=== PATIENT | female | born 1980 | race Caucasian/White ===

== ENCOUNTER 2016-07-12 09:15 | Emergency (ER) | payer BC, SELFPAY ==
[~2016-07-12] VITALS: Ht 165.1 cm; Wt 125.2 kg
[~2016-07-12 09:15] MED LIST: FLEXERIL OR; NEUR100C OR; ORTHO TRI CYCLEN OR; VICO5TAB OR
[2016-07-12] MEDS ORDERED: IBUP600T26 PO (09:25)
[2016-07-12] MEDS ORDERED: AMOX500C PO (09:25)
[2016-07-12] MEDS ORDERED: SODIUM CHLORIDE 0.9% 1000 ML IV ONE (09:45)
[2016-07-12] MEDS ORDERED: ONDANSETRON 4MG/2ML VIAL (J2405) IV ONE (09:45)
[2016-07-12] MEDS ORDERED: MORPHINE 4 MG/ML 1ML SYRINGE IV ONE (09:45)
[2016-07-12] MEDS ORDERED: CLINDAMYCIN 900 MG in APPROPRIATE DILUENT 1 EA IV ONE (09:45)
[2016-07-12] MEDS ORDERED: KETOROLAC 30 MG/ML VIAL (J1885) IV ONE (09:45)
[2016-07-12] MEDS ORDERED: VICO5TAB16 PO (09:47)
[2016-07-12 09:59] VITALS: BP 111/55
[2016-07-12 10:22] LABS: MEAN CORPUSCULAR HEMOGLOBIN 27.8 pg (27.0-33.0); MEAN CORPUSCULAR HGB CONC 31.5 g/dl (32.0-36.5); MEAN CORPUSCULAR VOLUME 88.1 fl (80.0-96.0); RED CELL DISTRIBUTION WIDTH 13.9 % (11.5-14.5); WHITE BLOOD COUNT 9.3 K/mm3 (4.0-10.0)
[2016-07-12 10:25] LABS: ANION GAP 6 MEQ/L (8-16); BLOOD UREA NITROGEN 9 MG/DL (7-18); CALCIUM LEVEL 9.2 MG/DL (8.5-10.1); CARBON DIOXIDE LEVEL 30 MEQ/L (21-32); CHLORIDE LEVEL 106 MEQ/L (98-107); CREATININE FOR GFR 0.93 MG/DL (0.55-1.02); GLOMERULAR FILTRATION RATE > 60.0 (>60); GLUCOSE, FASTING 93 MG/DL (70-105); POTASSIUM SERUM 4.1 MEQ/L (3.5-5.1); SODIUM LEVEL 142 MEQ/L (136-145)
[2016-07-12] MEDS ORDERED: CLIN1CAP5 PO (10:40)
[2016-07-12 11:04] LABS: EOSINOPHILS 1 % (0-5)
[2016-07-12] MEDS ORDERED: IBUPOTC PO (21:53)
[2016-07-12] MEDS ORDERED: HYDR-3713 PO (21:53)
[2016-07-12] MEDS ORDERED: EXCETAB80 PO (21:53)
== END 2016-07-12 11:08 | disposition home or self-care (01) ==
LOC: M ED 10:18
DX: K04.7 Periapical abscess without sinus (principal); K12.2 Cellulitis and abscess of mouth; Z79.2 Long term (current) use of antibiotics
CPT/HCPCS: 36415; 80048; 85007; 85027; 96365; 96375; 99283; J1885; J2405

== ENCOUNTER 2016-07-12 19:22 | Inpatient (IN) | payer BC ==
[~2016-07-12] VITALS: Ht 162.6 cm; Wt 126.7 kg
[~2016-07-12 19:22] MED LIST changes: +AMOX500C PO; +CLIN1CAP5 PO; +IBUP600T26 PO; +VICO5TAB16 PO
[2016-07-12] MEDS ORDERED: KETOROLAC 30 MG/ML VIAL (J1885) IV ONE (21:30)
[2016-07-12] MEDS ORDERED: ONDANSETRON 4MG/2ML VIAL (J2405) IV ONE (21:30)
[2016-07-12] MEDS ORDERED: NS 1,000 ML IV SCH (21:30)
[2016-07-12] MEDS ORDERED: CLINDAMYCIN 600 MG in APPROPRIATE DILUENT 1 EA IV ONE (21:30)
[2016-07-12 21:37] LABS: BASO % 0.4 % (0.0-1.0); EOS # 0.1 K/mm3 (0.0-0.50); EOS % 1.2 % (0.0-3.0); LARGE UNSTAINED CELL # 0.1 K/mm3 (0.0-0.4); LARGE UNSTAINED CELL % 0.8 % (0.0-4.0); LYMPH # 2.2 K/mm3 (1.5-4.5); LYMPH % 21.5 % (24.0-44.0); MEAN CORPUSCULAR HEMOGLOBIN 27.5 pg (27.0-33.0); MEAN CORPUSCULAR HGB CONC 30.9 g/dl (32.0-36.5); MEAN CORPUSCULAR VOLUME 88.9 fl (80.0-96.0); MONO # 0.5 K/mm3 (0.0-0.8); MONO % 5.3 % (0.0-5.0); NEUTROPHILS % 70.8 % (36.0-66.0); PLATELET COUNT, AUTOMATED 314 k/mm3 (150-450); WHITE BLOOD COUNT 9.9 K/mm3 (4.0-10.0)
[2016-07-12] MEDS ORDERED: EXCETAB80 PO (21:53)
[2016-07-12] MEDS ORDERED: HYDR-3713 PO (21:53)
[2016-07-12] MEDS ORDERED: IBUPOTC PO (21:53)
[2016-07-12 22:07] LABS: CONTROL LINE HCG INT CTR LINE PRESENT
[2016-07-12] MEDS ORDERED: ISOVUE-370 76% 100ML VIAL (Q9967) As Ordered ONE (22:12)
[2016-07-12] MEDS ORDERED: ACETAMINOPHEN TAB 650MG DOSE (2X325MG) PO PRN (22:15)
--- NOTE | 2016-07-12 22:40 | REPUSA ---
CT of the facial bones with contrast Clinical history: Pain, swelling. Technique: Multiple axial CT images were obtained through the facial bones and paranasal sinuses util izing 3 mm axial slices following administration of nonionic intravenous contrast. Coronal and sagitt al reconstructions were also obtained. Findings: The visualized paranasal sinuses are clear. The osteomeatal complexes are patent bilaterall y. The nasal septum is slightly deviated leftward. The visualized mastoid air cells are clear. The o sseous structures do not demonstrate any acute abnormalities. The superficial soft tissues demonstrat e inflammation and swelling throughout the left maxillary and left mandibular regions. Impression: 1. Left mandibular and maxillarysoft tissue inflammatory changes, most suggestive of cellulitis. Clin ical correlation is recommended.
--- NOTE | 2016-07-12 22:56 | HPE ---
DATE OF ADMISSION: 07/12/2016 REASON FOR ADMISSION: Facial cellulitis. PRIMARY CARE PROVIDER: None. HISTORY OF PRESENT ILLNESS: The patient is a 36-year-old female with no past medical history. Started having a tooth problem recently. She had a broken tooth. She states it has been going on for a while, but cannot tell me exactly when it was broken. Saw a dentist yesterday, [facility], 07/11/2016. She was noted to have a dental abscess and she was prescribed amoxicillin, which she started yesterday. This morning she stated the swelling has gotten worse overnight. She went back to the dentist's office. At that time they called an oral surgeon who reviewed the patient's x-ray from the day prior and recommended that patient go to the emergency room for IV antibiotics. Patient presented to the emergency room where she received one dose of clindamycin IV and was discharged to come back later for recheck. Patient ended up coming back early because the swelling had worsened and now spreading down to her neck. Patient received another dose of clindamycin at this time and hospitalist was called for the admission. Patient states that she has been afebrile, but has been complaining of chills. She states she has no swallowing or breathing problems at this time but that the swelling has gotten worse, spreading down to her neck with pain also going down her neck. She has no other symptoms at this time. REVIEW OF SYSTEMS: 12-point review of system was obtained, all of which was negative except for those mentioned above. PAST MEDICAL HISTORY: None. PAST SURGICAL HISTORY: None. ALLERGIES TO MEDICATIONS: None. MEDICATIONS: None. SOCIAL HISTORY: The patient denies tobacco or alcohol use. Lives at home with her and her son: FAMILY HISTORY: Significant for heart disease and diabetes. PHYSICAL FINDINGS: VITAL SIGNS ON ADMISSION: Temperature 98.5, pulse 80, respiratory rate 18, blood pressure is 152/88, pulse oximetry 90% on room air. HEENT: Pupils equal, round, reactive. NECK: Mild tenderness and swelling over the left side with some palpable lymph nodes on the left side of her neck. Obvious left facial swelling and tenderness. No obvious dental abscesses seen in her mouth. No obvious drainage. CARDIAC: Regular rate and rhythm. LUNGS: Clear to auscultation bilaterally. No wheezes, rhonchi or rales. ABDOMEN: Soft, nontender, nondistended. EXTREMITIES: No clubbing, cyanosis or edema. SKIN: No obvious lesions or rashes. NEUROLOGIC: Cranial nerves II-XII grossly intact. No focal deficits. LABORATORY FINDINGS: WBC 9.9, hemoglobin 11.6, hematocrit 37.5, platelet count 314. HCG level was ordered and was found to be negative. Chemistry from earlier today at 9:42 in the morning: Sodium 142, potassium 4.1, chloride 106, BUN 9, creatinine 0.93, fasting glucose 93. No recent images on file at this time. ASSESSMENT/PLAN: 1. Facial cellulitis. We will order a CT of the face with contrast to rule out any obvious dental abscess. Patient received a dose of clindamycin right now. We will start the patient on vancomycin and Zosyn. We will order a methicillin-resistant Staphylococcus aureus (MRSA) screen and two sets of blood cultures. We will admit patient for overnight observation. If symptoms do not improve by the morning, oral surgeon will need to be consulted. 2. Broken tooth. The patient was evaluated by a dentist outside and she will need oral surgery to remove the broken tooth, but further recommendation outpatient. The infection needs to be treated first before she undergoes any dental surgery. 3. Deep venous thrombosis (DVT) prophylaxis. We will start patient on thromboembolitic deterrents (TEDs) and sequentials while in bed. The patient will be seen by Dr. Kassie Michel in the morning. MAGDALENO
[2016-07-12] MEDS ORDERED: VANCOMYCIN HCL 1,000 MG, VIAL MATE ADAPTER 1 EACH in D5W 250 ML IV SCH (23:00)
[2016-07-13] MEDS: NS 1,000 ML IV SCH ×2 (00:30→15:57)
[2016-07-13] MEDS: VANCOMYCIN HCL 1,000 MG, VIAL MATE ADAPTER 1 EACH in D5W 250 ML IV SCH ×3 (00:48→13:08)
[2016-07-13 00:59] VITALS: BP 130/63
[2016-07-13] MEDS ORDERED: PERCOCET 5MG/325MG TAB PO PRN (04:00)
[2016-07-13] MEDS: methylPREDNISolone INJ 125 MG/2 ML VIAL (J2930) IV SCH ×3 (04:13→17:42)
[2016-07-13] MEDS: PIPERACILLIN/TAZOBACTAM SOD 3.375 GM in D5W MINI-BAG PLUS 50 ML IV SCH ×3 (04:13→20:19)
[2016-07-13 07:28] LABS: MEAN CORPUSCULAR HEMOGLOBIN 28.9 pg (27.0-33.0); MEAN CORPUSCULAR HGB CONC 32.3 g/dl (32.0-36.5); MEAN CORPUSCULAR VOLUME 89.5 fl (80.0-96.0); WHITE BLOOD COUNT 9.4 K/mm3 (4.0-10.0)
[2016-07-13 07:45] LABS: ALBUMIN 3.2 GM/DL (3.2-5.2); ALBUMIN/GLOBULIN RATIO 0.82 (1.00-1.93); ALKALINE PHOSPHATASE 62 U/L (45-117); ALT/SGPT 17 U/L (12-78); ANION GAP 3 MEQ/L (8-16); AST/SGOT 8 U/L (15-37); BILIRUBIN,TOTAL 0.5 MG/DL (0.2-1.0); BLOOD UREA NITROGEN 9 MG/DL (7-18); CALCIUM LEVEL 8.6 MG/DL (8.5-10.1); CARBON DIOXIDE LEVEL 30 MEQ/L (21-32); CHLORIDE LEVEL 107 MEQ/L (98-107); CREATININE FOR GFR 0.97 MG/DL (0.55-1.02); GLOMERULAR FILTRATION RATE > 60.0 (>60); GLUCOSE, FASTING 98 MG/DL (70-105); MAGNESIUM LEVEL 2.2 MG/DL (1.8-2.4); POTASSIUM SERUM 4.3 MEQ/L (3.5-5.1); SODIUM LEVEL 140 MEQ/L (136-145); TOTAL PROTEIN 7.1 GM/DL (6.4-8.2)
[2016-07-13 08:00] VITALS: BP 134/73
--- NOTE | 2016-07-13 10:12 | IPNPDOC ---
Subjective Date Seen The patient was seen on 07/13/16. Subjective Chief Complaint/HPI The patient is a 36-year-old female admitted with a reason for visit of Facial Cellulitis. Events since last encounter Patient was seen this morning at bedside. No acute overnight issues. She reports that she had a broken tooth and she went to the dentist who prescribed her with Augmentin. After taking about 2 pills of the Augmentin she started to notice increased facial swelling and pain. She went to her oral surgeon the next day and was recommended that she come to the emergency department. She received a dose of clindamycin and on recheck was admitted for observation. She reports that the facial swelling has significantly improved. Pain has also significantly improved. She denies any fevers or chills. No chest pain/pressure , palpitations, shortness of breath, nausea, vomiting, abdominal pain or diarrhea. No difficulty swallowing or airway compromise. Tooth is still a little sore, but the pain of her face has significantly improved. Objective Physical Examination General Exam: Positive: Alert, Cooperative, No Acute Distress Eye Exam: Positive: Conjunctiva & lids normal, EOMI, Negative: Sclera icteric ENT Exam: Positive: Atraumatic, Mucous membr. moist/pink, Pharynx Normal, Other ENT (has mild left facial swelling, no significant erythema) Neck Exam: Positive: Supple, Negative: thyromegaly Chest Exam: Positive: Clear to auscultation, Normal air movement Heart Exam: Positive: Rate Normal, Regular Rhythm, Normal S1, Normal S2, Negative: Murmurs Abdomen Exam: Positive: Normal bowel sounds, Soft, Negative: Tenderness, Hepatospenomegaly Extremity Exam: Positive: Edema (trace ankle edema), Normal pulses, Negative: Cyanosis, Tenderness Skin Exam: Positive: Nl turgor and temperature, Negative: Rash Neuro Exam: Positive: Normal Speech, Cranial Nerves 3-12 NL Psych Exam: Positive: Mental status NL, Oriented x 3 Assessment /Plan Problems (1) Facial cellulitis Status: Acute Response to Treatment: Improving Problem Specific Plan: Monitor Clinically Problem Text: * Maxillofacial CT done on 07/12 revealed left mandibular and maxillary soft tissue inflammatory changes, no mention of abscess * Pain and swelling have significantly improved. * She is currently on vancomycin and Zosyn * Will likely discharge tomorrow to continue with oral antibiotics (2) Broken tooth Status: Acute Response to Treatment: Stable Problem Specific Plan: Monitor Clinically Problem Text: * Will need to follow up with oral surgeon as outpatient, once cellulitis has resolved and antibiotic therapy completed (3) Morbid obesity Status: Chronic Problem Text: * BMI of 48 * Lifestyle modifications needed Plan/VTE VTE Prophylaxis Ordered?: Yes (teds/seq) Plan Diet: Advance Activity: Encourage Ambulation VS, I&O, 24H, Fishbone Vital Signs/I&O Vital Signs Date Time Temp Pulse Resp B/P (MAP) Pulse Ox O2 Delivery O2 Flow Rate FiO2 07/13/16 08:00 97.3 70 18 134/73 (93) 100 Room Air I&O- Last 24 Hours up to 6 AM 07/13/16 06:00 Intake Total 1010 ml Output Total 800 ml Balance 210 ml Laboratory Data CBC/BMP Laboratory Tests 07/12/16 21:29 Red Blood Count 4.22, Mean Corpuscular Volume 88.9, Mean Corpuscular Hemoglobin 27.5, Mean Corpuscular Hemoglobin Concent 30.9 L, Red Cell Distribution Width 14.0, Neutrophils (%) (Auto) 70.8 H, Lymphocytes (%) (Auto) 21.5 L, Monocytes (% ) (Auto) 5.3 H, Eosinophils (%) (Auto) 1.2, Basophils (%) (Auto) 0.4, Neutrophils # (Auto) 7.0, Lymphocytes # (Auto) 2.2, Monocytes # (Auto) 0.5, Eosinophils # (Auto) 0.1, Basophils # (Auto) 0.0 07/13/16 06:38 Red Blood Count 3.75 L, Mean Corpuscular Volume 89.5, Mean Corpuscular Hemoglobin 28.9, Mean Corpuscular Hemoglobin Concent 32.3, Red Cell Distribution Width 14.0, Calcium Level 8.6, Aspartate Amino Transf (AST/SGOT) 8 L, Alanine Aminotransferase (ALT/SGPT) 17, Alkaline Phosphatase 62, Total Bilirubin 0.5, Total Protein 7.1, Albumin 3.2 Microbiology Microbiology 07/12/16 Blood Culture, Received Pending 07/12/16 Blood Culture, Received Pending 07/13/16 MRSA Screen, Received Pending GME ATTESTATION GME ATTESTATION My preceptor for this patient encounter was physically present in the building during the encounter and was fully available. As needed, all aspects of the patient interview, examination, medical decision making process, and medical care plan development were reviewed and approved by the preceptor. Preceptor is aware and concurs with the plan as stated in the body of this note and will attest to such by his/her cosignature. ANTONIA CANELA DO July 13, 2016 10:12
--- NOTE | 2016-07-13 14:16 | PHACANCOPD ---
PHARMACY VANCOMYCIN DOSING Pt Demographics Demographics Patient Age:36 , Weight:126.700 , Gender: female Adjusted Body Weight Date: 07/13/16, Adjusted Body Weight: [83.5] Kg Events Past 24 Hours Events Past 24 Hours: YES: Pending Diagnostics Vancomycin Vancomycin indication: facial cellulitis Vancomycin Target Ranges: 15-20 mcg/ml Vancomycin Load Y/N: Yes Load Dose Date Time Vancomycin Load Dose: 2g Date: 07/13/16 Time: 0100 Vancomycin Dose Date: 07/13/16. Current Vancomycin Dose: [1g IV Q12H] Intermittent Dosing?: No Labs Labs Item Value Date Time White Blood Count 9.4 K/mm3 07/13/16 0638 White Blood Count 9.9 K/mm3 07/12/16 2129 Creatinine 0.97 MG/DL 07/13/16 0638 Blood Urea Nitrogen 9 MG/DL 07/13/16 0638 Micro Microbiology 07/12/16 Blood Culture, Received Pending 07/12/16 Blood Culture, Received Pending 07/13/16 MRSA Screen, Received Pending Creatinine Clearance Date:07/13/16. Estimated Creatinine Clearance: [~72.87ml/min]. Pending Labs Vancomycin trough scheduled 07/14/16 @1200 Assessment and Plan Maintaining Current Dose?: Yes Reason for dose change: No Dose Change Pharmacist Note Pharmacist Note Date: 07/13/16. Pharmacist note: Day #1 empiric zosyn/vancomycin initiated with a 2g loading dose 07/13 @0100, followed by a maintenance regimen of 1g IV Q12H for the treatment of facial cellulitis - aiming for a goal trough of 15-20mcg/ ml. The patient has a PMH of a dental abscess on 07/11/16, and was started on oral amoxicillin. WBC is WNL, and patient is afebrile. No PMH of MRSA or vanco use here at [facility]. Blood cultures and MRSA screen are currently pending. A vancomycin trough has been scheduled for 07/14/16 @1200. We will continue to monitor and make dose adjustments accordingly. DAMARI MEIER PHARMACY July 13, 2016 14:15
[2016-07-13 16:00] VITALS: BP 133/78
[2016-07-13] MEDS ORDERED: SLF 3 ML SYR IV PRN (18:00)
[2016-07-13 20:00] VITALS: BP 126/73
[2016-07-13] MEDS: SLF 3 ML SYR IV SCH (22:00)
[2016-07-14] VITALS: BP 109/57
[2016-07-14] MEDS: VANCOMYCIN HCL 1,000 MG, VIAL MATE ADAPTER 1 EACH in D5W 250 ML IV SCH (01:09)
[2016-07-14] MEDS: methylPREDNISolone INJ 125 MG/2 ML VIAL (J2930) IV SCH ×2 (02:55→10:08)
[2016-07-14] MEDS: PIPERACILLIN/TAZOBACTAM SOD 3.375 GM in D5W MINI-BAG PLUS 50 ML IV SCH (04:52)
[2016-07-14] MEDS: SLF 3 ML SYR IV SCH (06:00)
[2016-07-14 07:33] LABS: MEAN CORPUSCULAR HEMOGLOBIN 28.8 pg (27.0-33.0); MEAN CORPUSCULAR HGB CONC 32.9 g/dl (32.0-36.5); MEAN CORPUSCULAR VOLUME 87.7 fl (80.0-96.0); RED CELL DISTRIBUTION WIDTH 13.8 % (11.5-14.5); WHITE BLOOD COUNT 13.2 K/mm3 (4.0-10.0)
[2016-07-14 07:53] LABS: ALBUMIN/GLOBULIN RATIO 0.79 (1.00-1.93); ALKALINE PHOSPHATASE 60 U/L (45-117); ALT/SGPT 15 U/L (12-78); ANION GAP 5 MEQ/L (8-16); AST/SGOT 6 U/L (15-37); BILIRUBIN,TOTAL 0.2 MG/DL (0.2-1.0); BLOOD UREA NITROGEN 13 MG/DL (7-18); CALCIUM LEVEL 8.7 MG/DL (8.5-10.1); CARBON DIOXIDE LEVEL 28 MEQ/L (21-32); CHLORIDE LEVEL 107 MEQ/L (98-107); CREATININE FOR GFR 0.79 MG/DL (0.55-1.02); GLOMERULAR FILTRATION RATE > 60.0 (>60); GLUCOSE, FASTING 133 MG/DL (70-105); MAGNESIUM LEVEL 2.2 MG/DL (1.8-2.4); POTASSIUM SERUM 4.3 MEQ/L (3.5-5.1); SODIUM LEVEL 140 MEQ/L (136-145); TOTAL PROTEIN 6.8 GM/DL (6.4-8.2)
[2016-07-14 08:00] VITALS: BP 143/83
[2016-07-14] MEDS ORDERED: CLIN1CAP5 PO (10:37)
[2016-07-14] MEDS ORDERED: PRED10TA PO (10:37)
--- NOTE | 2016-07-14 22:14 | DSES ---
DATE OF ADMISSION: 07/12/2016 DATE OF DISCHARGE: 07/14/2016 DISCHARGE DIAGNOSES: 1. Facial cellulitis. 2. Broken tooth. 3. Morbid obesity. DISCHARGE MEDICATIONS: - prednisone 10 mg by mouth daily (taper) - clindamycin 300 mg by mouth four times a day times 7 days - Excedrin Migraine one tablet every 12 hours as needed - Vicodin one tablet by mouth every 6 hours as needed - ibuprofen 200 mg by mouth every 6 hours as needed BRIEF HOSPITAL COURSE: The patient originally presented with complaints of facial swelling and pain. She had a broken tooth and was evaluated by her dentist a couple days prior to admission. She was prescribed antibiotics for a dental abscess. She reports that the morning of admission the pain continued to get worse as well as the swelling got worse. She presented to her dentist's office and they called an oral surgeon. The patient had an x-ray performed the day prior and it was recommended she come to the emergency department for IV antibiotics. She went to the emergency department and received a dose of IV clindamycin and was discharged back home for recheck later on in the day. She ended up coming back early because the swelling continued to progress. She was admitted into the hospital and started on IV Zosyn and vancomycin. She had a maxillofacial CT which showed left mandibular and maxillary soft tissue inflammatory changes suggestive of cellulitis, no other abnormality noted. She was also initiated on Solu-Medrol. The patient's pain as well as swelling significantly improved with antibiotics and steroids. On day of discharge the patient reported that she felt well. She did not have any pain on the left side. Facial swelling had significantly improved. No erythema was noted. She denied any trouble swallowing or trouble breathing. No chest pain / pressure or palpitations. No nausea, vomiting, abdominal pain, diarrhea, fevers, chills, dizziness, headache. No visual disturbance. She was subsequently stable for discharge. LABORATORY DATA ON DISCHARGE: WBC 13.2, hemoglobin 10.6, hematocrit 32.2, platelet count 293, sodium 140, potassium 4.3, chloride 107, carbon dioxide 28, anion gap 5, BUN 13, creatinine 0.79, GFR greater than 60, fasting glucose 133, calcium 8.7, magnesium 2.2, total bilirubin 0.2, AST 6, ALT 15, alkaline phosphatase 60, total protein 6.8, albumin 3.0. MICROBIOLOGY: Blood cultures showed no growth. Methicillin-resistant Staphylococus aureus (MRSA) screen was negative. IMAGING: As stated above. PHYSICAL EXAMINATION: VITAL SIGNS: Temperature 97.7, pulse 77, respiratory rate 18, blood pressure 143/83, pulse oximetry 96% on room air. GENERAL: The patient is alert and oriented times three, in no acute distress. HEENT: She has some minimal left cheek swelling, significantly improved from admission. No erythema noted. Extraocular muscles are intact. Pupils are equally round and reactive to light. No scleral icterus. Moist mucosa. NECK: Supple. No cervical lymphadenopathy or thyromegaly. HEART: Normal S1, S2, regular rate and rhythm. No murmurs appreciated. LUNGS: Clear to auscultation bilaterally. No rales, rhonchi or wheezing. ABDOMEN: Soft, nontender, nondistended. Positive bowel sounds. No rebound, guarding or rigidity. EXTREMITIES: No cyanosis or edema. Positive pedal pulses bilaterally. SKIN: Warm and dry. No rashes noted. NEUROLOGIC: No focal deficits. Cranial nerves II-XII are grossly intact. Motor sensation intact. DISCHARGE INSTRUCTIONS: The patient is discharged in stable condition. She should followup with her primary care physician within 1 week. Followup with oral surgeon, Dr. Adryan Wyatt in 1-2 weeks for further intervention of her chipped tooth. Complete antibiotics as instructed. Activity as tolerated. Regular diet. Return to emergency department with any worsening or recurring symptoms. Time spent on discharge greater than 30 minutes. My preceptor for this patient encounter was Dr. Kassie Michel. The preceptor was physically present in the building during the encounter and was fully available. As needed, all aspects of the patient interview, examination, medical decision making process, and medical care plan development were reviewed and approved by the preceptor. The preceptor is aware and concurs with the plan as stated in the body of this note and will attest to such by his cosignature.
== END 2016-07-14 12:30 | disposition home or self-care (01) | DRG 383 ==
LOC: M ED 19:55 → M ED INP 22:11 → M PED 23:55
PROVIDERS: ADMIT Internal Medicine; ATTEND Internal Medicine
DX: L03.211 Cellulitis of face (principal); Z68.42 Body mass index [BMI] 45.0-49.9, adult; E66.01 Morbid (severe) obesity due to excess calories; Z79.899 Other long term (current) drug therapy; K03.81 Cracked tooth

== ENCOUNTER → 2018-06-21 | Outpatient (CLI) | payer BC ==
[~2018-06-21] MED LIST changes: +CLIN150C14 PO; -CLIN1CAP5 PO; +EXCETAB80 PO; +HYDR-3713 PO; +IBUP-1022 PO; -IBUP600T26 PO; +IBUPOTC PO; +PRED10TA2 PO; -VICO5TAB16 PO; +VICO5TAB17 PO
--- NOTE | 2018-06-22 03:26 | REP ---
Clinical: Dyspareunia . Technique: Transabdominal pelvic ultrasound followed by transvaginal examination for better evaluation of the endometrium and adnexa with color Doppler evaluation of the ovaries. Findings: Bladder is unremarkable and measures 16.1 x 9.9 x 9.6 cm . Anteverted uterus measures 10.7 x 4.0 x 5.7 cm. The endometrial complex measures 9.4 mm thickness. Multiple Nabothian cysts are identified measuring up to 16 mm. Posterior subserosal/pedunculated fundal fibroid measures 3.2 cm maximal diameter. Right posterior intramural fibroid measures 1.6 cm maximal diameter. Anterior intramural fibroid measures 1.0 cm maximal diameter. Posterior intramural fibroid measures 1.1 cm maximal diameter. Posterior intramural fibroid measures 0.7 cm maximal diameter. Bilateral ovaries are normal in appearance. Right ovary measures 2.8 x 2.3 x 2.5 cm ; Left ovary measures 2.5 x 1.5 x 2.5 cm. No pelvic fluid or adnexal mass lesion. Impression: 1. Myomatous uterus with multiple enlarged Nabothian cysts. 2. Normal appearance of the bilateral ovaries.
== END ==
LOC: M WHC 09:05
PROVIDERS: ATTEND Family Medicine
DX: D25.9 Leiomyoma of uterus, unspecified (principal); N88.8 Other specified noninflammatory disorders of cervix uteri

== ENCOUNTER → 2018-07-04 | Outpatient (REF) | payer BC ==
[2018-07-04 13:14] LABS: APPEARANCE, URINE HAZY (CLEAR); BACTERIA, URINE AUTO 1+ (NEGATIVE); BILIRUBIN, URINE AUTO NEGATIVE (NEGATIVE); BLOOD, URINE BLOOD NEGATIVE (NEGATIVE); COLOR, URINE YELLOW (YELLOW); GLUCOSE, URINE (UA) AUTO NEGATIVE (NEGATIVE); KETONE, URINE AUTO NEGATIVE (NEGATIVE); LEUKOCYTE ESTERASE, URINE AUTO NEGATIVE (NEGATIVE); NITRITE, URINE AUTO NEGATIVE (NEGATIVE); PROTEIN, URINE AUTO NEGATIVE (NEGATIVE); RBC, URINE AUTO 0 /HPF (0-3); SPECIFIC GRAVITY URINE AUTO 1.018 (1.002-1.035); SQUAMOUS EPITHELIAL CELL UR AU 3 /HPF (0-6); UROBILINOGEN, URINE AUTO 0.2 mg/dL (0.0-2.0); WBC, URINE AUTO 1 /HPF (0-3)
== END ==
LOC: M LAB REF 12:18
DX: Z13.228 Encounter for screening for other metabolic disorders (principal)

== ENCOUNTER → 2018-07-04 | Outpatient (REF) | payer BC ==
[2018-07-04 12:46] LABS: BASO % 0.4 % (0.0-1.0); EOS # 0.1 10^3/uL (0.0-0.50); EOS % 1.1 % (0.0-3.0); HEMATOCRIT 43.1 % (36.0-47.0); HEMOGLOBIN 13.1 g/dl (12.0-15.5); LYMPH # 1.7 10^3/uL (1.5-4.5); LYMPH % 23.8 % (24.0-44.0); MEAN CORPUSCULAR HEMOGLOBIN 28.1 pg (27.0-33.0); MEAN CORPUSCULAR HGB CONC 30.4 g/dl (32.0-36.5); MEAN CORPUSCULAR VOLUME 92.3 fl (80.0-96.0); MONO # 0.5 10^3/uL (0.0-0.8); MONO % 7.3 % (0.0-5.0); NEUTROPHILS # 4.9 10^3/uL (1.8-7.7); PLATELET COUNT, AUTOMATED 332 10^3/uL (150-450); RED BLOOD COUNT 4.67 10^6/uL (4.00-5.40); WHITE BLOOD COUNT 7.2 10^3/uL (4.0-10.0)
[2018-07-04 13:00] LABS: ALBUMIN 3.9 GM/DL (3.2-5.2); ALT/SGPT 23 U/L (12-78); BILIRUBIN,TOTAL 0.8 MG/DL (0.2-1.0); BLOOD UREA NITROGEN 15 MG/DL (7-18); CARBON DIOXIDE LEVEL 28 MEQ/L (21-32); CHLORIDE LEVEL 104 MEQ/L (98-107); CHOLESTEROL LEVEL 209 MG/DL (<200); CHOLESTEROL RISK RATIO 3.943 (<5); CREATININE FOR GFR 0.92 MG/DL (0.55-1.30); FREE T4 1.04 NG/DL (0.76-1.46); GLOMERULAR FILTRATION RATE > 60.0 (>58); GLUCOSE, FASTING 89 MG/DL (70-100); HDL CHOLESTEROL 53 MG/DL (>40); LDL CHOLESTEROL 125 MG/DL (<100); NON-HDL-C 156 MG/DL; POTASSIUM SERUM 4.2 MEQ/L (3.5-5.1); SODIUM LEVEL 137 MEQ/L (136-145); TOTAL 25(OH) VITAMIN D 10.7 NG/ML (30.0-100.0); TOTAL PROTEIN 7.2 GM/DL (6.4-8.2); TRIGLYCERIDES LEVEL 153 MG/DL (<150)
[2018-07-04 13:39] LABS: HEMOGLOBIN A1c 5.3 %
[2018-07-06 00:06] LABS: Lyme Disease IgG/IgM Antibodie <0.91 ISR (0.00-0.90); Lyme Disease IgM Ab Quantitati <0.80 index (0.00-0.79)
== END ==
LOC: M LAB REF 11:52
DX: Z13.228 Encounter for screening for other metabolic disorders (principal)

== ENCOUNTER → 2020-03-20 | Outpatient (REF) | payer BC ==
[~2020-03-20] MED LIST changes: -CLIN150C14 PO; +CLIN150C15 PO
[2020-03-20 13:15] LABS: HEMATOCRIT 44.3 % (36.0-47.0); HEMOGLOBIN 13.8 g/dl (12.0-15.5); MEAN CORPUSCULAR HGB CONC 31.2 g/dl (32.0-36.5); MEAN CORPUSCULAR VOLUME 86.7 fl (80.0-96.0); PLATELET COUNT, AUTOMATED 324 10^3/uL (150-450); RED BLOOD COUNT 5.11 10^6/uL (4.00-5.40); WHITE BLOOD COUNT 6.5 10^3/uL (4.0-10.0)
[2020-03-20 13:34] LABS: HEMOGLOBIN A1c 5.1 %
[2020-03-20 13:52] LABS: ALBUMIN 3.8 GM/DL (3.2-5.2); ALT/SGPT 17 U/L (12-78); BILIRUBIN,TOTAL 0.6 MG/DL (0.2-1.0); BLOOD UREA NITROGEN 12 MG/DL (7-18); CALCIUM LEVEL 9.3 MG/DL (8.5-10.1); CARBON DIOXIDE LEVEL 30 MEQ/L (21-32); CHLORIDE LEVEL 100 MEQ/L (98-107); CHOLESTEROL LEVEL 201 MG/DL (<200); CHOLESTEROL RISK RATIO 3.865 (<5); CREATININE FOR GFR 0.86 MG/DL (0.55-1.30); GLOMERULAR FILTRATION RATE > 60.0 (>58); GLUCOSE, FASTING 94 MG/DL (70-100); HDL CHOLESTEROL 52 MG/DL (>40); LDL CHOLESTEROL 135 MG/DL (<100); NON-HDL-C 149 MG/DL; POTASSIUM SERUM 4.2 MEQ/L (3.5-5.1); SODIUM LEVEL 137 MEQ/L (136-145); TOTAL 25(OH) VITAMIN D 20.1 NG/ML (30.0-100.0); TOTAL PROTEIN 7.3 GM/DL (6.4-8.2); TRIGLYCERIDES LEVEL 71 MG/DL (<150)
== END ==
LOC: M LAB REF 12:30
PROVIDERS: ATTEND Physician Assistant
DX: E78.5 Hyperlipidemia, unspecified (principal); Z13.228 Encounter for screening for other metabolic disorders